=== PATIENT | female | born 1975 | race Caucasian/White ===

== ENCOUNTER → 2017-04-19 | Outpatient (CLI) | payer BC ==
[2017-04-19 17:20] LABS: Basophils % (A) 1 %; CH 29.3; CHCM 34.4; Eosinophils # (A) 0.2 k/uL (0-0.7); Eosinophils % (A) 5 %; HCT 40.2 % (34.0-46.0); HDW 3.24; HGB 13.8 gm/dL (11.4-16.0); Luc # (Auto) 0.14; Luc % (Auto) 3; Lymphocytes # (A) 1.2 k/uL (1.0-4.8); Lymphocytes % (A) 25 %; MCH 29.4 pg (25.0-35.0); MCHC 34.3 g/dL (31.0-37.0); MCV 85.8 fL (80.0-100.0); Mean Platelet Volume 8.4; Monocytes # (A) 0.3 k/uL (0-1.0); Monocytes % (A) 6 %; Neutrophils # (A) 2.9 k/uL (1.3-7.7); Neutrophils % (A) 61 %; RBC 4.69 m/uL (3.80-5.40); RDW 14.6 % (11.5-15.5); WBC 4.7 k/uL (3.8-10.6); WBC (Perox) 4.68
[2017-04-19 17:25] LABS: ALT 38 U/L (9-52); AST 24 U/L (14-36); Alkaline Phosphatase 53 U/L (38-126); Anion Gap 12 mmol/L; Blood Urea Nitrogen 13 mg/dL (7-17); Calcium 9.9 mg/dL (8.4-10.2); Carbon Dioxide 19 mmol/L (22-30); Chloride 107 mmol/L (98-107); Cholesterol 204 mg/dL (<200); Glucose 108 mg/dL (74-99); HDL Cholesterol 41 mg/dL (40-60); Non-African American GFR(MDRD) >60 (>60 ml/min/1.73 sqM); Potassium 4.2 mmol/L (3.5-5.1); Sodium 138 mmol/L (137-145); Total Bilirubin 0.8 mg/dL (0.2-1.3); Total Protein 7.1 g/dL (6.3-8.2)
== END | disposition home or self-care (01) ==
LOC: MMGSC 11:31
PROVIDERS: ATTEND Family Medicine
DX: Z00.00 Encounter for general adult medical examination without abnormal findings (principal)
CPT/HCPCS: 36415; 80053; 80061; 84439; 84443; 85025

== ENCOUNTER → 2018-04-02 | Outpatient (CLI) | payer BC ==
--- NOTE | 2018-04-02 19:47 | XR ---
EXAMINATION TYPE: XR shoulder complete RT DATE OF EXAM: 04/02/2018 COMPARISON: NONE HISTORY: Shoulder pain TECHNIQUE: 3 views FINDINGS: I see no fracture nor dislocation. Joint spaces are normal. There are no pathologic calcifi cations. IMPRESSION: Negative right shoulder exam.
== END | disposition home or self-care (01) ==
LOC: RADXRMAIN 18:39
PROVIDERS: ATTEND Family Medicine
DX: M25.511 Pain in right shoulder (principal)

== ENCOUNTER → 2018-06-12 | Outpatient (CLI) | payer BC ==
--- NOTE | 2018-06-12 21:22 | MR ---
EXAMINATION TYPE: MR shoulder RT wo con DATE OF EXAM: 06/12/2018 COMPARISON: Plain film 04/16/2018 HISTORY: Rt shoulder pain, injured Feb 2018 TECHNIQUE: Multiplanar, multisequence imaging of the right shoulder is performed without contrast. FINDINGS: Rotator Cuff: There is no brigitte rotator cuff tear. Some fluid is present in the subacromial subdeltoi d bursa however. Some increased signal within the rotator cuff tendon with thickening anteriorly may represent some tendinosis Acromioclavicular Joint: Hypertrophic changes present with causes only minimal mass effect on the mus culotendinous junction of supraspinatus, suspect there may be a small acromial spur distally Glenohumeral Joint: Intact Labrum: The labrum appears grossly intact given limitation of non-arthrogram study. Biceps Tendon: The long head of biceps is in normal location within bicipital groove. Bone marrow signal: Some small pseudocysts present within the humeral head posteriorly. Other: Question some marrow reconversion within the proximal humerus, correlate for anemia. Possible small ganglion cyst present along the musculotendinous junction of subscapularis just distal and infe rior to the coracoid measuring approximately 12 mm IMPRESSION: Correlate for possible impingement. Possible ganglion cyst, correlate for possible anemia.
== END ==
LOC: RADMRIMAIN 19:24
PROVIDERS: ATTEND Orthopaedic Surgery
DX: M25.511 Pain in right shoulder (principal)

== ENCOUNTER 2018-07-15 09:15 | Day surgery (SDC) | payer BC ==
[2018-07-07 13:45] VITALS: BMI 28.2
--- NOTE | 2018-07-14 08:58 | HP ---
HISTORY AND PHYSICAL CHIEF COMPLAINT: Right shoulder pain. 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 She notes she is having pain with overhead use and at night. She has tried injections and medications with only partial temporary relief. She notes she is significantly limited because of pain. PAST MEDICAL HISTORY: Significant for asthma, eczema, migraines. PAST SURGICAL HISTORY: Significant for bilateral knee arthroscopy, left wrist surgery, tonsillectomy, tubal ligation. CURRENT MEDICATIONS: 1. Aspirin. 2. Cetirizine. 3. Inhalers. ALLERGIES: She notes allergies to IMITREX, PENICILLIN, SULFA, NICKEL, and FORMALDEHYDE. FAMILY HISTORY: Significant for depression and cancer. SOCIAL HISTORY: Negative for current tobacco or alcohol use. REVIEW OF SYSTEMS: Sixteen point review of systems otherwise reviewed and is noncontributory. PHYSICAL EXAMINATION: On examination, the patient is approximately 5 feet, 5 inches, 170 pounds of endomorphic habitus. HEENT exam is nonfocal. Neck is supple. On examination of the right shoulder, she is tender about the anterior subacromial space and the acromioclavicular joint. She has mild subacromial crepitus. Active range of motion forward elevation 155 degrees, external rotation with arm at side 60 degrees, internal rotation to L3. Motor strength is 5 minus over 5 for external rotation, 5 over 5 for abduction. Impingement test, Neer test are positive. She has pain with cross-body adduction. Her distal neurovascular exam otherwise appears intact in the right upper extremity. MRI report from 06/12/2018 shows evidence of rotator cuff tendinitis and impingement. No definite full-thickness rotator cuff tear is noted. IMPRESSION: 1. Right rotator cuff tendinitis/impingement. 2. Right acromioclavicular joint synovitis. RECOMMENDATIONS: I talked to the patient at length regarding her condition and treatment options. At this point, she is quite symptomatic despite conservative measures and opts to proceed with surgery. We will plan to proceed with arthroscopic evaluation with probable subacromial decompression, possible rotator cuff debridement, and possible distal clavicular resection. Risks and benefits were discussed at length in layman's terms. We will likely perform that as an outpatient procedure. MMODL / IJN: [id number] /
[~2018-07-15 09:15] MED LIST: DEXAMETHASONE SOD PHOSPHATE 10 MG/ML 1 ML VIAL IV ONE; HYDROmorphone 0.5 MG/0.5 ML SYRINGE IVP PRN; LACTATED RINGERS 1,000 ML IV SCH; MORPHINE SULFATE 2 MG/ML SYRINGE IV PRN; ONDANSETRON 4 MG/2 ML VIAL IVP ONE; ONDANSETRON 4 MG/2 ML VIAL IVP PRN; ceFAZolin IN SWFI 2 GM/20 ML SYRINGE IVP ONE
[2018-07-15] MEDS ORDERED: LIDOCAINE 1% 20 ML VIAL (10MG/ML) FOR IV START INTRADERMA ONE (10:04)
[2018-07-15] MEDS ORDERED: MIDAZOLAM 2 MG/2 ML VIAL IV ONE (10:32)
[2018-07-15] MEDS ORDERED: SUCCINYLCHOLINE CHLORIDE VIAL 200 MG/10 ML VIAL IV ONE (11:21)
[2018-07-15] MEDS ORDERED: PHENYLEPHRINE-0.9% NACL SYG 1 MG/10 ML SYRINGE ONE (11:21)
[2018-07-15] MEDS ORDERED: PROPOFOL 10 MG/ML 20 ML VIAL IV ONE (11:21)
[2018-07-15] MEDS ORDERED: MIDAZOLAM 2 MG/2 ML VIAL ONE (11:21)
[2018-07-15] MEDS ORDERED: fentaNYL (PF) 50 MCG/ML 2 ML AMP ONE (11:21)
[2018-07-15] MEDS ORDERED: ROPIVACAINE 5 MG/ML 30 ML VIAL ONE (11:21)
[2018-07-15] MEDS ORDERED: EPINEPHrine (PF) 1 ML in SODIUM CHLORIDE 0.9% IRRIGATIO 3,000 ML IRRIGATION ONE ×8 (11:21)
--- NOTE | 2018-07-15 11:25 | P.ONQ ---
Anesthesiology Proc Note - PNB - Peripheral Nerve Block Performed Right Interscalene Single Time Out Performed: Yes Procedure Start Time: 10:33 Procedure Stop Time: 10:38 Indication: Acute Post-Operative Pain, Requested by physician Sedation Type: Sedate with meaningful contact maintained Preparation: Sterile Prep Position: Supine Needle Size: 50mm (2") Needle Gauge: 21 Technique: Ultrasound Injectate: 0.5% Ropivacaine (see comment for volume) (ropi .5% 30cc) Blood Aspirated: No Pain Paresthesia on Injection Noted: No Resistance on Injection: Normal Events: Uneventful and Well Tolerated
[2018-07-15] MEDS ORDERED: LACTATED RINGERS 1,000 ML IV ONE (12:02)
--- NOTE | 2018-07-15 12:44 | P.OP ---
Date of Procedure: 07/15/18 Preoperative Diagnosis: Right shoulder impingement/partial thickness rotator cuff tear/adhesive capsulitis/acromioclavicular joint synovitis Postoperative Diagnosis: Same Procedure(s) Performed: Right shoulder arthroscopic subacromial decompression/rotator cuff debridement/ distal clavicular resectionCole Camp procedure/manipulation under anesthesia Anesthesia: natasha SEO Surgeon: Tomasz Marte Recoil Spring Winder #1: Manuel Rodgers Estimated Blood Loss (ml): 10 Pathology: none sent Condition: stable Disposition: PACU Indications for Procedure: The patient's a 43-year-old female who presents with progressive right shoulder pain/stiffness/weakness despite adequate conservative measures. A discussion of the risks and benefits of operative intervention versus continued conservative measures was made with the patient. She opted to proceed with surgery. Operative risks to include infection, neurovascular injury, development of blood clots, possible incomplete resolution of symptoms, possible development of postoperative stiffness, and possible need for subsequent procedures was discussed. Informed consent was obtained. Operative Findings: As below Description of Procedure: The patient was brought to the operating room, and after induction of general anesthesia was placed in a beachchair position. A preoperative interscalene block was placed by anesthesia for postoperative analgesia. Bony prominences were appropriately padded. I examined the right shoulder. There was moderate adhesions and block to passive external rotation and forward elevation. The shoulder was gently manipulated breaking through these adhesions. The right upper chamois was prepped and draped in normal fashion. The bony outlines the acromion, distal clavicle, and coracoid process were outlined with a skin marker. The glenohumeral joint was inflated with 50 mL of saline utilizing a spinal needle from posterior approach. A posterior portal was made through a 5 mm skin incision 1 cm medial and inferior to the posterior lateral border of the acromion. A blunt trocar was used to easily into the joint. Diagnostic arthroscopy was performed. On inspection of the joint, no significant chondral injury was noted. The anterior labrum was intact. The subscapularis was intact. The biceps and its anchor were intact. Rotator cuff was intact on the articular surface. The posterior recess was inspected. The posterior labrum was intact. The arthroscope was then placed into the subacromial space. A lateral portal made through a 5 mm skin incision 2 cm inferior to the anterior lateral border of the acromion. The soft tissue on the undersurface the acromion was debrided with a motorized shaver and with electrocautery clearly defining the anterior medial and lateral borders as well as the distal clavicle. An anterior inferior acromioplasty was performed with a motorized juan starting anterolateral, then extending this posteriorly, then extending this medially. I was able to convert to a flat acromion. From the posterior and lateral viewing portals. The distal clavicle was inspected. There was marked synovitis that was debrided with a motorized shaver. The distal 3-4 mm of the clavicle was resected utilizing a motorized bur after making an anterior portal 35 motor meters skin incision just inferior to the acromioclavicular joint. Attention was then paid towards the rotator cuff. There was significant bursitis that was debrided with motorized shaver. On inspection rotator cuff a small area of partial-thickness tearing of the anterior aspect the supraspinatus was noted on the bursal surface. The edges were debrided back to stable base. This involved less than 2-3 mm of the tendon thickness. The posterior portion of the cuff was intact. The arthroscope was then removed. The portals were closed with simple 3-0 nylon suture. A sterile dressing was applied in addition to a sling. The patient was awoken from general anesthesia and transferred to the recovery room in good condition. Blood loss was estimated at 10 mL. No complications were incurred. Sponge and needle counts were correct at the end of the case.
[2018-07-15 12:47] VITALS: TEMP 96.9
[2018-07-15 14:12] VITALS: RESP 18
[2018-07-15 14:30] VITALS: BP 112/72; PULSE 91
== END 2018-07-15 15:01 | disposition home or self-care (01) ==
LOC: OR 09:15
PROVIDERS: ATTEND Orthopaedic Surgery
DX: M75.41 Impingement syndrome of right shoulder (principal); M75.111 Incomplete rotator cuff tear or rupture of right shoulder, not specified as traumatic; M75.01 Adhesive capsulitis of right shoulder; M65.811 Other synovitis and tenosynovitis, right shoulder; J45.909 Unspecified asthma, uncomplicated; L30.9 Dermatitis, unspecified; G43.909 Migraine, unspecified, not intractable, without status migrainosus; Z79.82 Long term (current) use of aspirin; Z79.899 Other long term (current) drug therapy; Z88.0 Allergy status to penicillin; Z88.2 Allergy status to sulfonamides; Z88.8 Allergy status to other drugs, medicaments and biological substances; Z91.048 Other nonmedicinal substance allergy status; Z98.51 Tubal ligation status
CPT/HCPCS: 64415; 81025; 29824; 29823; J2250; J0330; J1100; J2405; J0171; J3010; J2795; J2370; J2704; J0690

== ENCOUNTER → 2019-07-24 | Outpatient (CLI) | payer BC | LOC: LABWHC1 11:22 | PROVIDERS: ATTEND Psychiatry & Neurology Neurology | DX: G43.109 Migraine with aura, not intractable, without status migrainosus (principal) | CPT/HCPCS: 36415; 85652; 86038; 86140 ==

== ENCOUNTER → 2019-08-10 | Outpatient (CLI) | payer BC ==
--- NOTE | 2019-08-11 05:56 | MR ---
EXAMINATION TYPE: MR angio head wo con DATE OF EXAM: 08/10/2019 COMPARISON: NONE HISTORY: Migraines, dizziness, rt sided facial numbness TECHNIQUE: Time of flight images focusing on the [place] were performed without contrast.. 2-D and 3-D postprocessing imaging is performed on independent workstation and reviewed. FINDINGS: There is dominant left vertebral artery. Vertebral arteries are patent to basilar junction. There is some gradual tapering of the distal vertebral artery but still measuring over 2.0 mm distal ly. There are patent bilateral posterior communicating arteries. There is no significant focal stenos is or aneurysmal change in the posterior circulation. Images of the anterior circulation show patent anterior communicating artery near image 94. There is no significant focal stenosis or aneurysmal change seen. IMPRESSION: No aneurysmal change at the level of the [place].
--- NOTE | 2019-08-11 06:02 | MR ---
EXAMINATION TYPE: MR brain wo con DATE OF EXAM: 08/10/2019 COMPARISON: Prior MRI brain January 04, 2016. HISTORY: Migraines, dizziness, rt sided facial numbness TECHNIQUE: Multiplanar, multisequence imaging of the brain and brainstem is performed without IV cont rast. FINDINGS: Current exam slightly suboptimal due to artifact degradation. Diffusion weighted images demonstrate no evidence of a recent infarct or other diffusion abnormality. There is no extraaxial fluid collection or significant white matter signal abnormality. The ventricu lar system and cisternal spaces are normal in size and appearance. The brain volume is age appropria te. Midline structures demonstrate normal morphology. The craniocervical junction appears within normal limits. Normal vascular flow voids are present. The visualized sinuses are clear and the globes are i ntact. No suspicious fluid signal bilateral mastoid air cells. IMPRESSION: Fairly unremarkable study. No significant change from prior. No new or acute findings trevor dent.
== END | disposition home or self-care (01) ==
LOC: RADMRIMAIN 18:13
PROVIDERS: ATTEND Psychiatry & Neurology Neurology
DX: G43.109 Migraine with aura, not intractable, without status migrainosus (principal)
CPT/HCPCS: 70544; 70551

== ENCOUNTER → 2019-09-07 | Outpatient (CLI) | payer BC ==
[2019-09-07 11:58] VITALS: BP 123/79; PULSE 95; RESP 20
--- NOTE | 2019-09-09 12:43 | P.PAINCN ---
History of Present Illness - Reason for Consult Consult date: 09/07/19 - History of Present Illness This is a 44-year-old patient referred by Dr. Cassidy Trevino with a chief complaint of chronic headaches, she describes 2 separate headachesmigraines, which has been present for 10-11 years, for which she takes Maxalt, Fioricet, and was recently started on verapamil. She also reports a new headache, which started on July 06, located in her posterior neck and bilateral occipital region, occasionally radiating to left temporal region. This headache was so severe that she sought care at an urgent care center on July 07, she had a continuous headache for about 1 week. Her migraines occur about 3-4 times per week, however this headache is different from her usual migraines, occurring almost daily. She did get a Daith piercing on 08/20/[address] Trevino diagnosed her with occipital neuralgia, and recommended occipital nerve blocks. Her migraines are typically triggered by lack of sleep, hormonal changes, red wine and weather, is associated with photo and phonophobia, as well as occasional numbness and tingling in her face. Her new headache doesn't seem to have any triggers and has no associations. She describes these headaches as sharp, squeezing, stabbing, and occasionally radiates to the left eye and she feels like she has a poker through her eye going to the base of her skull. Patient denies new-onset weakness, bowel/bladder incontinence, or any other signs or symptoms of cauda equina syndrome. There are no signs of acute intoxication, and no indications of medication diversion or overuse. In addition to above, 13-point review of systems is also negative for chest pain, shortness of breath, changes in vision, changes in hearing, new onset weakness, abdominal pain, diarrhea, extreme fatigue, malaise, fever, skin changes, homicidal or suicidal ideation, or bowel or bladder incontinence. Physical exam: Vital Signs: Reviewed in EMR GENERAL: Well appearing, in no acute distress PSYCH: Mood and affect is appropriate. Awake, alert, and oriented SKIN: Skin color, texture, turgor normal, no rashes or lesions HEENT: Normocephalic, atraumatic. EOM intact CV: No pedal edema RESP: Respirations are unlabored, no audible wheezing GI: Abdomen non-distended MUSCULOSKELETAL: Bilateral upper extremity strength is normal and symmetric. No atrophy or tone abnormalities are noted. Neck: Mild tenderness to palpation over the cervical paraspinous muscles. Spurling negative, Axial Loading Test negative, To's sign negative. No pain with neck flexion, extension, or lateral flexion. No obvious deformity or signs of trauma. Normal cervical lordotic curve and normal cervical spine range of motion. Bilateral occipital Tinel's is positive. Extremities: Peripheral joint ROM is full and pain free without obvious insta bility or laxity in all four extremities. No edema or skin discolorations noted. Gait: Gait is normal NEUR: Bilateral upper extremity coordination and muscle stretch reflexes are physiologic and symmetric. No loss of sensation is noted. Cranial nerves are grossly intact. Imaging: None Assessment: 1. Bilateral occipital neuralgia 2. Migraine headaches Plan: 1. Explanation: We discussed the risks and benefits of occipital nerve blocks, she would like to proceed. We also discussed that if this does not provide benefit, we will obtain a cervical spine MRI to look for cervical degenerative changes, as this could be causing her headaches as well. 2. Investigations: None 3. Counseling: None 4. Procedures: We'll schedule bilateral occipital nerve blocks, patient would like to do this without sedation 5. Consultations: None 6. Medications: Managed by Dr. Trevino 7. Disposition: For above-mentioned procedure Past Medical History Past Medical History: Asthma, Osteoarthritis (OA), Skin Disorder Additional Past Medical History / Comment(s): environmental alg trigger asthma,eczema,cortisone injection 04-16-18,migraines History of Any Multi-Drug Resistant Organisms: None Reported Past Surgical History: Adenoidectomy, Orthopedic Surgery, Tonsillectomy, Tubal Ligation Additional Past Surgical History / Comment(s): arthroscopic carolyn knees,lt wrist ORIF, right rotator cuff repair Past Anesthesia/Blood Transfusion Reactions: No Reported Reaction Smoking Status: Never smoker - Past Family History Mother Family Medical History: No Reported History Medications and Allergies Home Medications Medication Instructions Recorded Confirmed Type Albuterol Inhaler [Ventolin Hfa 1 - 2 puff INHALATION RT-Q6H PRN 07/07/18 07/15/18 History Inhaler] Aspirin 81 mg PO DAILY 07/07/18 07/15/18 History Betamethasone/Propylene Glyc 30 ml TP DAILY PRN 07/07/18 07/15/18 History [Betamethasone Dp Aug 0.05% Lot] Calcium Carb/Vitamin D3/Vit K1 1 tab PO DAILY 07/07/18 07/15/18 History [Viactiv Soft Chew] Calcium Carbonate [Tums] 1,000 mg PO BID 07/07/18 07/15/18 History Cetirizine HCl 10 mg PO DAILY 07/07/18 07/15/18 History EPINEPHrine (Auto Inject) [Epipen] 0.3 mg IM ONCE PRN 07/07/18 07/15/18 History Flaxseed Oil 1,000 mg PO DAILY 07/07/18 07/15/18 History Hydrocortisone Oint 1 applic TOPICAL BID PRN 07/07/18 07/15/18 History [Hydrocortisone 2.5% Oint] Ibuprofen [Motrin] 600 mg PO Q6HR PRN 07/07/18 07/15/18 History Mometasone Furoate 45 gm TP DAILY PRN 07/07/18 07/15/18 History Multivitamins, Thera [Multivitamin 1 tab PO DAILY 07/07/18 07/15/18 History (formulary)] Rizatriptan Benzoate [Maxalt] 10 mg PO DAILY PRN 07/07/18 07/15/18 History Ubidecarenone [Co Q-10] 100 mg PO DAILY 07/07/18 07/15/18 History Hydrocodone/Acetaminophen [[place] 1 each PO Q6HR PRN #28 tab 07/15/18 Rx 5-325] Allergies Allergy/AdvReac Type Severity Reaction Status Date / Time bee venom protein (honey bee) Allergy cellulitis Verified 09/04/19 11:51 formaldehyde Allergy Rash/Hives Verified 09/04/19 11:51 nickel Allergy Rash/Hives Verified 09/04/19 11:51 Penicillins Allergy Rash/Hives Verified 09/04/19 11:51 Sulfa (Sulfonamide Allergy Rash/Hives Verified 09/04/19 11:51 Antibiotics) sumatriptan [From Imitrex] Allergy myalgia Verified 09/04/19 11:51 PQRS Measure Charge Sheet Measure #130: Documentation of Current Meds in Medical Chart: Patient's medications documented in chart Measure #226: Tobacco Use: Screen & Cessation Intervention: Pt not a tobacco user Measure #111: Pneumonia Vaccination: Pneumococcal vaccine NOT administered or previously given Measure #47: Advance Care Plan: Advance care planning discussed & documented, pt chose/unable to give Measure #412: Opioid Treatment Agreement: No documentation of signed opioid treatment agreement Measure #408: Opioid Therapy Follow-up Evaluation: Patient had NO f/u eval minimum every 3 months during opioid therapy Measure #317: Preventitive Care & Scrn High Bld Press & F/U: Normal blood pressure, f/u not required Measure #128: Body Mass Index (BMI) Screening & Follow-up: BMI documented ABOVE normal parameters - f/u documented Measure #131: Pain Assessment & Follow-up: Pain positive & plan documented, Follow-up scheduled Measure #431: Unhealthy Alcohol Use Preventative Care & Scrn: Patient not identified as an unhealthy alcohol user PQRS Narrative: Smoking Status Never smoker Pain Intensity [Left Head] 3 Scale Used Numeric (1 - 10) Hx Alcohol Use (MH) No Home Medications: Ambulatory Orders Albuterol Inhaler [Ventolin Hfa Inhaler] 1 - 2 puff INHALATION RT-Q6H PRN 07/07/18 Aspirin 81 mg PO DAILY 07/07/18 Betamethasone/Propylene Glyc [Betamethasone Dp Aug 0.05% Lot] 30 ml TP DAILY PRN 07/07/18 Calcium Carb/Vitamin D3/Vit K1 [Viactiv Soft Chew] 1 tab PO DAILY 07/07/18 Calcium Carbonate [Tums] 1,000 mg PO BID 07/07/18 Cetirizine HCl 10 mg PO DAILY 07/07/18 EPINEPHrine (Auto Inject) [Epipen] 0.3 mg IM ONCE PRN 07/07/18 Flaxseed Oil 1,000 mg PO DAILY 07/07/18 Hydrocortisone Oint [Hydrocortisone 2.5% Oint] 1 applic TOPICAL BID PRN 07/07/18 Ibuprofen [Motrin] 600 mg PO Q6HR PRN 07/07/18 Mometasone Furoate 45 gm TP DAILY PRN 07/07/18 Multivitamins, Thera [Multivitamin (formulary)] 1 tab PO DAILY 07/07/18 Rizatriptan Benzoate [Maxalt] 10 mg PO DAILY PRN 07/07/18 Ubidecarenone [Co Q-10] 100 mg PO DAILY 07/07/18 Hydrocodone/Acetaminophen [[place] 5-325] 1 each PO Q6HR PRN #28 tab 07/15/18
== END | disposition home or self-care (01) ==
LOC: PNWHC3 11:42
PROVIDERS: ATTEND Anesthesiology
DX: M54.81 Occipital neuralgia (principal); G43.909 Migraine, unspecified, not intractable, without status migrainosus; Z79.82 Long term (current) use of aspirin; Z79.899 Other long term (current) drug therapy; Z79.891 Long term (current) use of opiate analgesic
CPT/HCPCS: 99211

== ENCOUNTER 2019-09-16 09:20 | Day surgery (SDC) | payer BC ==
[2019-09-11 14:54] VITALS: BMI 29.7
[~2019-09-16 09:20] MED LIST changes: +BUPIVACAINE (PF) 0.5% 30 ML VIAL ONE; -DEXAMETHASONE SOD PHOSPHATE 10 MG/ML 1 ML VIAL IV ONE; -HYDROmorphone 0.5 MG/0.5 ML SYRINGE IVP PRN; +MIDAZOLAM 2 MG/2 ML VIAL ONE; -MORPHINE SULFATE 2 MG/ML SYRINGE IV PRN; -ONDANSETRON 4 MG/2 ML VIAL IVP ONE; -ONDANSETRON 4 MG/2 ML VIAL IVP PRN; -ceFAZolin IN SWFI 2 GM/20 ML SYRINGE IVP ONE; +fentaNYL (PF) 50 MCG/ML 2 ML AMP ONE; +methylPREDNISolone ACETATE 40 MG/ML 1 ML VIAL ONE
[2019-09-16 09:59] VITALS: TEMP 99.4
--- NOTE | 2019-09-16 11:08 | P.PCN ---
Date of Procedure: 09/16/19 Procedure(s) Performed: Preoperative diagnoses= 1- bilaterally Greater occipital neuralgia Postoperative diagnoses= same as preoperative diagnosis. Procedure= Bilateral Greater occipital nerve block Anesthesia= moderate sedation with Versed 2 mg and fentanyl 50 micrograms . Estimated blood loss=minimal. Procedure indication= the patient had a history of severe chronic neck pain ,and headache, diagnosed with occipital neuralgia exam was positive for severe tenderness over the occipital nerve bilaterally, she will be a good candidate occipital nerve block, patient failed conservative management Procedure description= the patient was seen and identified in the preoperative holding area, risks and benefits and alternative of the procedure and possible complications discussed with the patient, and he agreed with the preceding, patient signed the consent, an IV was started, and vital signs were monitored and were stable throughout the procedure, patient was placed in the sitting position or table and the neck area was prepped and draped with a sterile fashion, vital signs were closely monitored during the procedure, 25-gauge needle advanced 1 inch lateral to the occipital protuberance on the right side, at the location of the right occipital nerve , then after negative aspiration for heme and CSF and there was no paresthesia during the injection, 6 ml of Robivacaine 0.5% and 20 mg of Depo-Medrol injected after negative aspiration, the needle removed, and the entire same procedure was repeated for the left Greater occipital nerve. Patient tolerated the procedure well without any complication, The patient returned to supine position after the back was cleaned and a Band- Aid applied, the patient transported to recovery room in stable condition and he was monitored for 30 minutes before he was discharged home and then patient was reexamined before going home and patient was discharged in stable condition and patient will follow up with the pain clinic in a few weeks.
[2019-09-16] MEDS ORDERED: IV FLUID CONTINUATION 1,000 ML IV ONE ×2 (11:14)
[2019-09-16 11:48] VITALS: BP 114/70; PULSE 70; RESP 18
== END 2019-09-16 11:51 | disposition home or self-care (01) ==
LOC: ORPAIN 09:20
PROVIDERS: ATTEND Specialist
DX: G89.29 Other chronic pain (principal); M54.81 Occipital neuralgia; G43.909 Migraine, unspecified, not intractable, without status migrainosus; J45.909 Unspecified asthma, uncomplicated; M19.90 Unspecified osteoarthritis, unspecified site; L30.9 Dermatitis, unspecified; Z98.51 Tubal ligation status; Z79.1 Long term (current) use of non-steroidal anti-inflammatories (NSAID); Z79.82 Long term (current) use of aspirin; Z79.891 Long term (current) use of opiate analgesic; Z79.899 Other long term (current) drug therapy; Z91.030 Bee allergy status; Z88.0 Allergy status to penicillin; Z88.2 Allergy status to sulfonamides; Z88.8 Allergy status to other drugs, medicaments and biological substances; Z91.048 Other nonmedicinal substance allergy status; Z91.09 Other allergy status, other than to drugs and biological substances
CPT/HCPCS: 81025; 64405; J2250; J1030; J3010

== ENCOUNTER 2019-09-30 06:22 | Day surgery (SDC) | payer BC ==
[~2019-09-30 06:22] MED LIST changes: -BUPIVACAINE (PF) 0.5% 30 ML VIAL ONE; -MIDAZOLAM 2 MG/2 ML VIAL ONE; -fentaNYL (PF) 50 MCG/ML 2 ML AMP ONE; -methylPREDNISolone ACETATE 40 MG/ML 1 ML VIAL ONE
[2019-09-30] MEDS ORDERED: LIDOCAINE 1% 20 ML VIAL (10MG/ML) FOR IV START INTRADERMA ONE (06:45)
--- NOTE | 2019-09-30 07:01 | P.PN ---
Progress Note - Text Progress Note Date: 09/30/19 This is 44 years old female with a history of chronic and severe headache, she is diagnosed with the migraine headache and bilateral occipital neuralgia, she is scheduled to have repeat bilateral occipital nerve block, she reported that since we did the occipital nerve block a few weeks ago she has 0 headache, and her headache and neck pain resolved completely. Physical Examinations : -Constitutiona : Cooperative , not in acute distress . -HEENT : nech : supple , no Lymphadenopathy , normal thyroid size . - neurologic : Cranial nerve II to XII intact , no focal neurological deffecit . -psychatric : alert , oriented X 3 , appropriate affect , intact judgment and insight . -Lymphatic : no Lymphadenopathy . - musculoskeltal : Lumber spine moter stegnth lower extremities ,thigh and legs 5/5 Right side , 5/5 Left side Assessment and plan= occipital neuralgia, headache Symptoms improved after bilateral occipital nerve block done a few weeks ago, since the block she had no headache, Patient will follow up in the pain clinic when necessary, and we'll do bilateral occipital nerve block if it's indicated
[2019-09-30 07:10] VITALS: BP 121/77; PULSE 78; RESP 16; TEMP 97.6
== END 2019-09-30 07:12 | disposition home or self-care (01) ==
LOC: ORPAIN 06:22
PROVIDERS: ATTEND Specialist
DX: M54.81 Occipital neuralgia (principal); G43.909 Migraine, unspecified, not intractable, without status migrainosus; Z53.8 Procedure and treatment not carried out for other reasons
CPT/HCPCS: 84703

== ENCOUNTER → 2021-02-22 | Outpatient (CLI) | payer BC ==
--- NOTE | 2021-02-22 14:56 | MR ---
EXAMINATION TYPE: MR knee LT wo con DATE OF EXAM: 02/22/2021 COMPARISON: None HISTORY: Left knee pain and swelling x1 month TECHNIQUE: Multiplanar, multisequence imaging of the left knee is performed without IV contrast. FINDINGS: MEDIAL MENISCUS: Myxoid degeneration posterior horn medial meniscus. LATERAL MENISCUS: Oblique tear posterior horn lateral meniscus. Anterior horn is intact. CRUCIATE LIGAMENTS: The anterior and posterior cruciate ligaments are intact and unremarkable. COLLATERAL LIGAMENTS: The medial collateral ligament and lateral collateral ligament complex are inta ct and unremarkable. EXTENSOR MECHANISM: Visualized quadriceps and patellar tendons are intact. EFFUSION: No significant suprapatellar joint effusion. POPLITEAL CYST: No popliteal/bull cyst. TRICOMPARTMENT SPACES: Intact CARTILAGE: Intact BONE MARROW SIGNAL: No focal abnormal marrow signal is appreciated. OTHER: Subcutaneous edema popliteal fossa. IMPRESSION: 1. Oblique tear posterior horn lateral meniscus. 2. Myxoid degeneration posterior horn medial meniscus without tear. 3. Popliteal region subcutaneous edema.
== END | disposition home or self-care (01) ==
LOC: RADMRIMAIN 12:56
PROVIDERS: ATTEND Orthopaedic Surgery
DX: M23.252 Derangement of posterior horn of lateral meniscus due to old tear or injury, left knee (principal); R60.0 Localized edema

== ENCOUNTER → 2021-03-03 | Outpatient (CLI) | payer BC ==
[2021-03-03 23:33] LABS: Basophils # (A) 0.06 X 10*3/uL (0.00-0.10); HGB 14.5 g/dL (12.0-15.0); Lymphocytes # (A) 1.72 X 10*3/uL (0.90-5.00); Lymphocytes % (A) 28.7 %; MCH 28.9 pg (27.0-32.0); MCHC 33.7 g/dL (32.0-37.0); MCV 85.8 fL (80.0-97.0); Mean Platelet Volume 10.9 fL (9.5-12.2); Monocytes % (A) 8.3 %; Neutrophils # (A) 3.39 X 10*3/uL (1.80-7.70); Neutrophils % (A) 56.7 %; Platelet Count 308 X 10*3/uL (140-440); RBC 5.01 X 10*6/uL (4.10-5.20); RDW 13.1 % (11.5-14.5); WBC 5.99 X 10*3/uL (4.50-10.00)
[2021-03-04 01:38] LABS: Erythrocyte Sedimentation Rate 7 mm/Hr (0-20)
[2021-03-04 10:46] LABS: HLA B27 NEGATIVE
[2021-03-04 16:08] LABS: C Reactive Protein 0.5 mg/dL (0.0-0.8); Uric Acid 7.2 mg/dL (2.9-7.7)
== END | disposition home or self-care (01) ==
LOC: LABWHC1 15:45
PROVIDERS: ATTEND Orthopaedic Surgery
DX: M25.50 Pain in unspecified joint (principal)
CPT/HCPCS: 36415; 84550; 85025; 85652; 86038; 86140; 86431; 86618; 86812

== ENCOUNTER 2021-04-28 06:32 | Day surgery (SDC) | payer BC ==
[2021-04-20 15:32] VITALS: BMI 31.4
--- NOTE | 2021-04-27 11:37 | HP ---
HISTORY AND PHYSICAL CHIEF COMPLAINT: Left knee pain. HISTORY OF PRESENT ILLNESS: The patient is a 46-year-old female who presents with a 3-month history of progressive left knee pain. She notes pain and giving way with weightbearing. She is having night symptoms. She has tried injections in addition to medications, without much relief. She notes daily pain that limits her. She also complains of right knee soreness and stiffness, worsening recently. PAST MEDICAL HISTORY: Significant for asthma, eczema, migraines. PAST SURGICAL HISTORY: Significant for bilateral knee arthroscopy, right shoulder arthroscopy, left wrist surgery, tonsillectomy, tubal ligation. CURRENT MEDICATIONS: Current medications include rizatriptan, Ventolin, ibuprofen and Emgality. ALLERGIES: IMITREX, PENICILLIN, SULFA, NICKEL AND FORMALDEHYDE. FAMILY HISTORY: Significant for depression, epilepsy and cancer. SOCIAL HISTORY: Negative for current tobacco or alcohol use. REVIEW OF SYSTEMS: Sixteen-point review of systems is otherwise reviewed and noncontributory. PHYSICAL EXAMINATION: On examination, the patient is approximately 5 feet 6 inches, 195 pounds of endomorphic habitus. HEENT exam is nonfocal. Neck is supple. She has painless passive motion of the left hip. Straight-leg raise is negative. Active motion left knee minus 14 to 65 degrees of flexion. She is tender about the medial and lateral joint line. She has a mild effusion. Collaterals are stable, Raoul is negative, Kodi's elicits medial and lateral pain. She does have an antalgic gait pattern. On examination of the right knee, active motion minus 10 to 120 degrees of flexion. She is tender about the medial joint line. She has mild effusion. Collaterals are stable. Kodi's elicits medial pain. She has genu varum alignment. IMAGING: MRI report for the left knee from 02/22/2021 shows evidence of a posterolateral meniscal tear in addition to increased signal involving the medial meniscus. X-rays of the right knee obtained in the office show moderate medial compartment narrowing. IMPRESSION: 1. Internal derangement of left knee with symptomatic lateral meniscal tear. 2. Left knee synovitis. 3. Right knee moderate medial compartment osteoarthrosis. RECOMMENDATIONS: I talked to the patient at length regarding her condition along with treatment options. Regarding her left knee, she is having pain and mechanical symptoms that limit her despite conservative measures. After thorough discussion, she opts to proceed with arthroscopic evaluation of the left knee with possible partial lateral meniscectomy in addition to possible synovectomy. Regarding her right knee, she opts to proceed with a cortisone injection along with aspiration. We will likely perform that as an outpatient procedure. Risks and benefits were discussed at length in layman's terms. MMANA / IJN: [id number] /
[~2021-04-28 06:32] MED LIST changes: +DEXAMETHASONE SOD PHOSPHATE 4 MG/ML 1 ML VIAL IV ONE; +MIDAZOLAM 2 MG/2 ML VIAL IV PRN; +ONDANSETRON 4 MG/2 ML VIAL IVP ONE; +SCOPOLAMINE 1.5MG/72HR PATCH TRANSDERM ONE
[2021-04-28] MEDS ORDERED: LIDOCAINE 1% (10MG/ML) FOR IV START INTRADERMA ONE (07:15)
[2021-04-28] MEDS ORDERED: fentaNYL (PF) 50 MCG/ML 2 ML AMP ONE (07:49)
[2021-04-28] MEDS ORDERED: LIDOCAINE 1% INJ 10MG/ML (20 ML MDV) ONE (07:49)
[2021-04-28] MEDS ORDERED: MIDAZOLAM 2 MG/2 ML VIAL ONE (07:49)
[2021-04-28] MEDS ORDERED: PROPOFOL 10 MG/ML 20 ML VIAL IV ONE (07:49)
[2021-04-28] MEDS ORDERED: EPINEPHrine (PF) 1 ML in SODIUM CHLORIDE 0.9% IRRIGATIO 3,000 ML IRRIGATION ONE ×4 (08:00)
[2021-04-28] MEDS ORDERED: methylPREDNISolone ACETATE 80 MG/ML 1 ML VIAL INTRAARTIC ONE (08:13)
[2021-04-28] MEDS ORDERED: LIDOCAINE 2% INJ 20 MG/ML SQ ONE ×2 (08:13)
--- NOTE | 2021-04-28 08:44 | P.OP ---
Date of Procedure: 04/28/21 Preoperative Diagnosis: #1 left knee internal derangement #2 right knee osteoarthrosis Postoperative Diagnosis: #1 left knee lateral meniscal tear with reactive synovitis of the medial, lateral, and patellofemoral compartments #2 same right knee osteoarthrosis Procedure(s) Performed: #1 left knee arthroscopic partial lateral meniscectomy/partial synovectomy of the medial, lateral, and patellofemoral compartments #2 aspiration with cortisone injection right knee Anesthesia: GETA Surgeon: Tomasz Marte Estimated Blood Loss (ml): 10 Pathology: none sent Condition: stable Disposition: PACU Indications for Procedure: The patient's a 46-year-old female presents with progressive left knee pain and mechanical symptoms for the past several months despite conservative measures. A discussion of the risks and benefits of operative intervention versus continued conservative measures made with patient she opted to proceed with surgery. Operative risks to include infection, neurovascular injury, development of blood clots, possible incomplete resolution of symptoms, possible worsening symptoms and need for subsequent procedures was discussed. Informed consent was obtained. I also discussed an aspiration with cortisone injection for her right knee osteoarthrosis and she opted to proceed. Operative Findings: As below Description of Procedure: The patient was brought to the operating room, and after induction of general anesthesia examined the left knee. Collaterals were stable, Raoul was negative, and posterior drawer was negative. The left lower extremity was prepped and draped in a normal fashion. A superior lateral portal was made through a 3 mm skin incision superior and lateral to the patella. This was used for outflow. A lateral portal was made through a 5 mm vertical skin incision lateral to the patella tendon above the joint line. Diagnostic arthroscopy was performed. On inspection of the medial compartment, the medial meniscus and articular cartilage appeared to be intact. Marked synovitis involving the anterior medial compartment was noted was debrided with motorized shaver.. On inspection of the notch, the anterior cruciate ligament appeared to be intact. On inspection of the lateral compartment, and oblique tear involving the middle one third of the lateral meniscus in the white-white junction was noted. This debrided back to stable base with straight baskets and a motorized shaver. Again marked synovitis involving anterolateral compartment was noted was debrided with a motorized shaver back to stable base. On inspection of the patellofemoral articulation, there was some chondral fibrillation however no loose chondral fragments. Synovitis involving the patellofemoral compartment was debrided with a motorized shaver. The gutters were clear debris. The knee was then thoroughly irrigated. The portals were closed with Steri-Strips. A sterile dressing was applied in addition to a compression stocking. I then addressed the right knee. The lateral knee was prepped with ChloraPrep. 2 mL of 1% plain lidocaine was injected. 3 mL of serous joint fluid was aspirated. 80 mg of methylprednisolone along with 2 mL 1% lidocaine was injected. The patient was awoken from general anesthesia and transferred to recovery room in good condition. Blood loss was estimated at 10 mL. No complications were incurred.
[2021-04-28 08:52] VITALS: TEMP 96.9
[2021-04-28] MEDS: HYDROmorphone 0.5 MG/0.5 ML SYRINGE IVP PRN ×4 (09:00→09:23)
[2021-04-28] MEDS ORDERED: KETOROLAC 15 MG/ML 1 ML VIAL ONE (09:19)
[2021-04-28] MEDS ORDERED: KETOROLAC 15 MG/ML 1 ML VIAL IVP ONE (09:23)
[2021-04-28] MEDS ORDERED: HYDROcodone/APAP 5-325MG 1 EACH TAB ONE (10:18)
[2021-04-28] MEDS ORDERED: HYDROcodone/APAP 5-325MG 1 EACH TAB PO ONE (10:19)
[2021-04-28 11:39] VITALS: BP 122/74; PULSE 99; RESP 18
[2021-04-28] MEDS ORDERED: ONDANSETRON 4 MG/2 ML VIAL ONE (11:43)
[2021-04-28] MEDS ORDERED: ONDANSETRON 4 MG/2 ML VIAL IVP ONE (11:44)
== END 2021-04-28 12:20 | disposition home or self-care (01) ==
LOC: OR 06:32
PROVIDERS: ATTEND Orthopaedic Surgery
DX: M23.92 Unspecified internal derangement of left knee (principal); M17.11 Unilateral primary osteoarthritis, right knee; S83.282A Other tear of lateral meniscus, current injury, left knee, initial encounter; M65.9 Synovitis and tenosynovitis, unspecified; J45.909 Unspecified asthma, uncomplicated; L30.9 Dermatitis, unspecified; G43.909 Migraine, unspecified, not intractable, without status migrainosus; Z88.0 Allergy status to penicillin; Z88.2 Allergy status to sulfonamides; Z88.8 Allergy status to other drugs, medicaments and biological substances; Z91.048 Other nonmedicinal substance allergy status; Z79.899 Other long term (current) drug therapy
CPT/HCPCS: 81025; 29881; 29876; 20610; J2001 ×2; J2250; J1040; J1100; J0690; J2405; J0171; J3010; J1885; J2704; J1170

== ENCOUNTER 2022-12-05 10:13 | Day surgery (SDC) | payer BC ==
[~2022-12-05 10:13] MED LIST changes: -DEXAMETHASONE SOD PHOSPHATE 4 MG/ML 1 ML VIAL IV ONE; +LIDOCAINE 1% (10MG/ML) FOR IV START INTRADERMA PRN; -MIDAZOLAM 2 MG/2 ML VIAL IV PRN; -ONDANSETRON 4 MG/2 ML VIAL IVP ONE; -SCOPOLAMINE 1.5MG/72HR PATCH TRANSDERM ONE
[2022-12-05 10:48] VITALS: TEMP 97.6
[2022-12-05] MEDS ORDERED: LACTATED RINGERS 1,000 ML IV ONE (10:50)
[2022-12-05] MEDS ORDERED: LIDOCAINE 2% INJ 20 MG/ML (2 ML VIAL) ONE (10:59)
[2022-12-05] MEDS ORDERED: PROPOFOL 10 MG/ML 20 ML VIAL IV ONE (10:59)
--- NOTE | 2022-12-05 11:19 | P.PCN ---
Date of Procedure: 12/05/22 Procedure(s) Performed: BRIEF HISTORY: Patient is a 47-year-old pleasant white female scheduled for an elective colonoscopy as a part of screening for colon cancer. PROCEDURE PERFORMED: Colonoscopy with snare polypectomy. PREOPERATIVE DIAGNOSIS: Screening for colon cancer. IV sedation per Anesthesia. PROCEDURE: After informed consent was obtained, the patient, was brought into the endoscopy unit. IV sedation was administered by Anesthesia under continuous monitoring. Digital rectal examination was normal. Initially the Olympus CF-160 flexible video colonoscope was then inserted in the rectum, gradually advanced into the cecum without any difficulty. Careful examination was performed as the scope was gradually being withdrawn. Ileocecal valve and the appendiceal orifice were visualized and appeared normal. Prep was excellent. Mucosa of the cecum, ascending colon, transverse colon, descending colon, appeared normal. In the sigmoid: There was a 1 cm polyp removed by snare polypectomy. Rest of the sigmoid colon, and rectum appeared normal. Retroflexion was performed in the rectum and no lesions were seen. The patient tolerated the procedure well. IMPRESSION: 1 cm sigmoid colon polyp status post polypectomy Rest of the colon appeared normal RECOMMENDATIONS: Findings of this examination were discussed with the patient as well as her family. She was advised to with the biopsy results and have a repeat coloscopy in 3 years.
[2022-12-05 11:24] VITALS: RESP 18
[2022-12-05 11:48] VITALS: BP 120/80; PULSE 72
== END 2022-12-05 12:06 | disposition home or self-care (01) ==
LOC: ORWHC2ENDO 10:13
PROVIDERS: ATTEND Internal Medicine Gastroenterology
DX: Z12.11 Encounter for screening for malignant neoplasm of colon (principal); D12.5 Benign neoplasm of sigmoid colon; J45.909 Unspecified asthma, uncomplicated; G43.909 Migraine, unspecified, not intractable, without status migrainosus; Z79.51 Long term (current) use of inhaled steroids; Z79.899 Other long term (current) drug therapy; Z88.0 Allergy status to penicillin; Z88.2 Allergy status to sulfonamides; Z88.8 Allergy status to other drugs, medicaments and biological substances
CPT/HCPCS: 81025; 88305; 45385; J2704; J2001